=== PATIENT | male | born 1965 | race Caucasian/White ===

== ENCOUNTER 2016-07-01 12:36 | Emergency (ER) | payer OTHER ==
[2016-07-01 12:47] VITALS: BP 158/11; PULSE 75; TEMP 97.6; BMI 33.5
--- NOTE | 2016-07-01 12:58 | PDOC ---
History of Present Illness - General Chief Complaint: Altered Mental Status Stated Complaint: POSSIBLE TIA (PCP SENT) Time Seen by Provider: 07/01/16 12:57 Past History - Past Medical History Allergies/Adverse Reactions: Allergies Allergy/AdvReac Type Severity Reaction Status Date / Time No Known Allergies Allergy Verified 07/01/16 12:43 - Psycho/Social/Smoking Cessation Hx Suicidal Ideation: No Smoking History: Never smoked *Physical Exam - Vital Signs Last Vital Signs Temp Pulse Resp BP Pulse Ox 97.6 F 75 19 158/11 97 07/01/16 12:43 07/01/16 12:43 07/01/16 12:43 07/01/16 12:43 07/01/16 12:43
[2016-07-01] MEDS ORDERED: SODIUM CHLORIDE 1,000 ML IV SCH (13:00)
--- NOTE | 2016-07-01 13:23 | PDOC ---
Attending Attestation - Resident Resident Name: Kofi Maurer - ED Attending Attestation I have performed the following: I have examined & evaluated the patient, The case was reviewed & discussed with the resident, I agree w/resident's findings & plan, Exceptions are as noted - HPI HPI: 07/01/16 13:22 The patient is a 50-year-old male, with no significant past medical history, who presents to the emergency department at the encouragement of his primary care physician, after he developed "forgetfulness" and having trouble expressing himself, both of which developed shortly after he took Celexa for the first time yesterday afternoon. He states that he is at baseline now. He denies focal weakness, paresthesias. He denies fever, neck pain. He denies alcohol use or illegal drug use. - Physicial Exam PE: 07/01/16 13:22 Vitals noted (ititial diastolic of 11 was an error) He is well appearing No aphasia No focal weaknesses 07/01/16 13:31 EKG: Normal sinus rhythm at 72, normal axis, normal intervals, no ST changes - Medical Decision Making 07/01/16 13:22 Will obtain labs, head CT The temporal relationship of the symptoms with the Celexa administration, makes me very suspicious for an adverse drug reaction 07/01/16 14:01 CBC, urinalysis, urine toxicity noted 07/01/16 14:[address] done, results pending The patient continues to be at baseline Neuro exam remains non-focal 07/01/16 14:46 CT official reading, negative Clinical impression: Adverse drug reaction to Celexa I discussed the physical exam findings, ancillary test results and final diagnoses with the patient. I answered all of the patient's questions. The patient was satisfied with the care received and felt comfortable with the discharge plan and treatment plan. The patient will call their primary care physician within 24 hours to arrange follow-up and will return to the Emergency Department with any new, persistent or worsening symptoms. A portion of this note was documented by scribe services under my direction. I have reviewed the details of the note, within reason, and agree with the documentation with the following case summary and management plan written by me.
[2016-07-01 13:35] LABS: BASOPHIL 1.1 % (0-2.0); EOSINOPHIL 2.3 % (0-4.5); MCH 28.5 pg (25.7-33.7); MCHC 33.2 g/dl (32.0-35.9); MEAN CELL VOLUME 85.9 fl (80-96); MEAN PLT VOLUME 7.7 fl (7.5-11.1); NEUTROPHILS 55.4 % (42.8-82.8); PLATELET COUNT 238 K/MM3 (134-434); RDW 14.2 % (11.9-15.9); WHITE BLOOD COUNT 7.5 K/mm3 (4.0-10.0)
--- NOTE | 2016-07-01 13:39 | PDOC ---
History of Present Illness <Benny Sotelo - Last Filed: 07/01/16 14:46> - History of Present Illness Initial Comments: 50 yo M with PMHx of HTN, anxiety and ptsd present with one day history of Altered mental status. He states that he saw his PCP yesterday and was started on Escitalopram. He states that since yesterday he had slurred speech and inability to find words. It lasted for a few hours and has since resolved but it worried him enough to come to to ED. He denies CP,CAMPOS, SOB, palpitation, abd.pain. N/V. Timing/Duration: gone now Severity: mild Associated Symptoms: anxiety <Kofi Maurer - Last Filed: 07/01/16 15:02> - General Chief Complaint: Altered Mental Status Stated Complaint: POSSIBLE TIA (PCP SENT) Time Seen by Provider: 07/01/16 12:57 Past History <Benny Sotelo - Last Filed: 07/01/16 14:46> - Past Medical History Psychosocial History: Yes: depression, hypertension - Social History Smoking Status: Never smoked <Kofi Maurer - Last Filed: 07/01/16 15:02> - Past Medical History Allergies/Adverse Reactions: Allergies No Known Allergies Allergy (Verified 07/01/16 12:43) Home Medications: Ambulatory Orders Escitalopram Oxalate [Lexapro -] 10 mg PO DAILY 07/01/16 Losartan Potassium [Cozaar -] 50 mg PO DAILY 07/01/16 *Review of Systems - Review of Systems Psychiatric: Yes: Anxiety, Other (difficult to find words. ) All Other Systems: Reviewed and Negative <Kofi Maurer - Last Filed: 07/01/16 15:02> *Physical Exam - Vital Signs Last Vital Signs Temp Pulse Resp BP Pulse Ox 97.6 F 75 19 158/11 97 07/01/16 12:43 07/01/16 12:43 07/01/16 12:43 07/01/16 12:43 07/01/16 12:43 <Benny Sotelo - Last Filed: 07/01/16 14:46> - Vital Signs Last Vital Signs Temp Pulse Resp BP Pulse Ox 97.6 F 75 19 158/11 97 07/01/16 12:43 07/01/16 12:43 07/01/16 12:43 07/01/16 12:43 07/01/16 12:43 - Physical Exam HEENT: positive: EOMI, ANGELICA Neck: positive: Supple Respiratory/Chest: positive: Lungs Clear, Normal Breath Sounds Cardiovascular: positive: Regular Rhythm, Regular Rate, S1, S2. 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, Fully Oriented, Alert, Normal Mood/ Affect, Normal Response, Motor Strength 5/5 <Kofi Maurer - Last Filed: 07/01/16 15:02> Plan - Order(s) Order(s): Orders Medication Instructions Recorded Escitalopram Oxalate [Lexapro -] 10 mg PO DAILY 07/01/16 Losartan Potassium [Cozaar -] 50 mg PO DAILY 07/01/16 - Laboratory CBC & Chemistry Diagram: 07/01/16 13:18 07/01/16 13:17 Lab/Micro Results: 07/01/16 07/01/16 07/01/16 13:33 13:17 13:17 INR Sodium Potassium Chloride Carbon Dioxide Anion Gap BUN Creatinine Creat Clearance w eGFR Random Glucose Calcium Total Bilirubin AST ALT Alkaline Phosphatase Creatine Kinase Creatine Kinase Index CK-MB (CK-2) Troponin I Total Protein Albumin Triglycerides Cholesterol Total LDL Cholesterol HDL Cholesterol Urine Color Urine Appearance Urine pH Ur Specific Center [place] Urine Protein Urine Glucose (UA) Urine Ketones Urine Blood Urine Nitrite Urine Bilirubin Urine Urobilinogen Ur Leukocyte Esterase Opiates Screen Negative Methadone Screen Negative Barbiturate Screen Negative Phencyclidine Screen Negative Ur Amphetamines Screen Negative MDMA (Ecstasy) Screen Negative Benzodiazepines Screen Negative Cocaine Screen Negative U Marijuana (THC) Screen Negative Alcohol, Quantitative < 5.0 Blood Type O POSITIVE Antibody Screen Negative 07/01/16 07/01/16 07/01/16 13:17 13:17 13:17 INR 1.14 Sodium 144 Potassium 4.2 Chloride 108 H Carbon Dioxide 25 Anion Gap 11 BUN 14 Creatinine 0.9 Creat Clearance w eGFR > 60 Random Glucose 85 Calcium 9.7 Total Bilirubin 0.6 AST 27 ALT 32 Alkaline Phosphatase 76 Creatine Kinase 206 Creatine Kinase Index 1.8 CK-MB (CK-2) 3.656 H Troponin I 0.02 Total Protein 7.8 Albumin 4.6 Triglycerides 125 Cholesterol 227 H Total LDL Cholesterol 148 H HDL Cholesterol 53 Urine Color Yellow Urine Appearance Clear Urine pH 5.0 Ur Specific [place] 1.025 Urine Protein Negative Urine Glucose (UA) Negative Urine Ketones Negative Urine Blood Negative Urine Nitrite Negative Urine Bilirubin Negative Urine Urobilinogen Negative Ur Leukocyte Esterase Negative Opiates Screen Methadone Screen Barbiturate Screen Phencyclidine Screen Ur Amphetamines Screen MDMA (Ecstasy) Screen Benzodiazepines Screen Cocaine Screen U Marijuana (THC) Screen Alcohol, Quantitative Blood Type Antibody Screen 07/01/16 13:18 RBC 5.59 MCV 85.9 MCHC 33.2 RDW 14.2 MPV 7.7 Neutrophils % 55.4 Lymphocytes % 32.1 Monocytes % 9.1 Eosinophils % 2.3 Basophils % 1.1 - Radiology Study(ies) Orders: 07/01/16 14:46 EXAM: HEAD CT INTERPRETED BY: Dr. Alvarez REVIEWED BY: Dr. Ordaz IMPRESSION: No evidence of acute intracranial hemorrhage, edema, midline shift, mass effect, or skull fracture. No CT evidence of acute territorial infarction. <Benny Sotelo - Last Filed: 07/01/16 14:46> - Progress Note Progress Note: 07/01/16 15:01 Most likely an adverse drug reaction. CT head negative for acute pathology. Will discharge home. - Laboratory CBC & Chemistry Diagram: 07/01/16 13:18 07/01/16 13:17 <Kofi Maurer - Last Filed: 07/01/16 15:02> *DC/Admit/Observation/Transfer - Attestations Scribe Attestion: 07/01/16 14:47 Documentation prepared by Benny Sotelo, acting as medical staffing coordinator for Roberto Ordaz MD. <Benny Sotelo - Last Filed: 07/01/16 14:46> - Discharge Dispostion Admit: No <Kofi Maurer - Last Filed: 07/01/16 15:02> Diagnosis at time of Disposition: Adverse drug effect - Discharge Dispostion Disposition: HOME - Referrals Referrals: Ezequiel Sandoval MD [Primary Care Provider] - - Patient Instructions Printed Discharge Instructions: DI for Adverse Drug Reaction -- Other Additional Instructions: Need to follow up with PCP ONDINA to be refered to Psychiatry. Please stop Escitalapram immediately. Regular diet. Increase activity as tolerated. Return to ER immediately if symptoms return or worsen.
[2016-07-01 13:45] LABS: URINE APPEARANCE CLEAR; URINE BILIRUBIN NEGATIVE (NEGATIVE); URINE BLOOD NEGATIVE (NEGATIVE); URINE COLOR YELLOW; URINE GLUCOSE (UA) NEGATIVE (NEGATIVE); URINE KETONE NEGATIVE (NEGATIVE); URINE LEUK ESTERASE NEGATIVE (NEGATIVE); URINE NITRITE NEGATIVE (NEGATIVE); URINE PROTEIN NEGATIVE (NEGATIVE); URINE UROBILINOGEN NEGATIVE E.U./dl (0.2-1.0)
[2016-07-01 13:59] LABS: URINE MARIJUANA THC NEGATIVE ng/ml (CUTOFF=50)
[2016-07-01 14:03] LABS: ALBUMIN 4.6 g/dl (3.4-5.0); ANION GAP 11 (8-16); CALCIUM 9.7 mg/dL (8.5-10.1); CHOLESTEROL 227 mg/dL (50-200); CO2 25 mmol/L (21-32); COCKROFT - GAULT 151.19; CREATININE 0.9 mg/dL (0.7-1.3); GLUCOSE,RANDOM 85 mg/dL (74-106); SGOT/AST 27 U/L (15-37); SGPT/ALT 32 U/L (12-78)
[2016-07-01 14:05] LABS: INR 1.14 (0.82-1.09); PROTHROMBIN TIME (PATIENT) 12.6 SEC (9.98-11.88)
[2016-07-01 14:07] LABS: ALK PHOS 76 U/L (45-117); BILIRUBIN,TOTAL 0.6 mg/dL (0.2-1.0); TOT PROT 7.8 g/dl (6.4-8.2); TROPONIN I 0.02 ng/ml (0.00-0.05)
[2016-07-01 14:13] LABS: LDL CHOLESTEROL (ONLY SJRH) 148 mg/dL (5-100)
--- NOTE | 2016-07-01 16:20 | EKG ---
Test Reason : Blood Pressure : / mmHG Vent. Rate : 073 BPM Atrial Rate : 073 BPM P-R Int : 164 ms QRS Dur : 092 ms QT Int : 388 ms P-R-T Axes : 051 071 038 degrees QTc Int : 427 ms NORMAL SINUS RHYTHM NORMAL ECG NO PREVIOUS ECGS AVAILABLE Confirmed by AVINASH ROUSE MD ([id number]) on 07/01/2016 4:20:28 PM Referred By: Confirmed By:AVINASH ROUSE MD
== END 2016-07-01 15:12 | disposition home or self-care (01) ==
LOC: JER 12:36
DX: R41.82 Altered mental status, unspecified (principal); T43.225A Adverse effect of selective serotonin reuptake inhibitors, initial encounter; Y92.038 Other place in apartment as the place of occurrence of the external cause; I10 Essential (primary) hypertension; F32.9 Major depressive disorder, single episode, unspecified; F43.10 Post-traumatic stress disorder, unspecified
CPT/HCPCS: 36415; 70450-TC; 80053; 80307; 81003; 82465; 82550; 82553; 83718; 83721; 84478; 84484; 85025; 85610; 86850; 86900; 86901; 93005; 93010; 99283-25

== ENCOUNTER 2018-02-26 16:16 | Inpatient (IN) | payer OTHER ==
--- NOTE | 2018-02-26 16:27 | PDOC ---
History of Present Illness - General Chief Complaint: Redness To Affected Area Stated Complaint: LEFT LEG INJECTION Time Seen by Provider: 02/26/18 16:25 History Source: Patient Exam Limitations: No Limitations - History of Present Illness Initial Comments: 02/26/18 17:48 Pt is a 52yo M with PMH of HTN, RAMSES presenting to ED with complaints of L nevarez pain and redness. Pt said yesterday he felt his leg was sore. He was at a soccer game on yesterday and stated that he started to have chills and felt like he was having a fever. Per , pt looked flushed. Fever at home was 101. Pt has not taken anything for fever. He also has not been taking his home bp meds as prescribed. Now his L nevarez is red compared to yesterday and feels more sore. He also says he feels bloated and has not had a bowel movement in 3 days or so. Last BM was regular, non bloody and not tarry. He thinks he may have diverticulitis. He endorses L groin pain and nausea. Denies testicular pain, urinary symptoms, vomiting, diarrhea, constipation, weakness, numbness, SOB, chest pain, headache, sore throat. PMD: Speedy Sandoval PMH: htn PSH: uvula repair Meds: losartan Allergies: nkda Social: occasional alcohol use. Past History - Past Medical History Allergies/Adverse Reactions: Allergies Allergy/AdvReac Type Severity Reaction Status Date / Time No Known Allergies Allergy Verified 02/26/18 16:21 Home Medications: Ambulatory Orders Escitalopram Oxalate [Lexapro -] 10 mg PO DAILY 07/01/16 Losartan Potassium [Cozaar -] 50 mg PO DAILY 07/01/16 COPD: No GI Disorders: Yes (diverticulitis) HTN: Yes - Suicide/Smoking/Psychosocial Hx Smoking History: Never smoked Review of Systems - Review of Systems Constitutional: Yes: Chills, Fever HEENTM: No: Symptoms Reported Respiratory: No: Cough, Shortness of Breath Cardiac (ROS): No: Chest Pain, Lightheadedness, Palpitations, Syncope ABD/GI: Yes: Constipated, Nausea, Other (bloating). No: Diarrhea, Rectal Bleeding, Vomiting, Indigestion, Abdominal cramping, Tarry Stools Musculoskeletal: Yes: See HPI, Muscle Pain (L nevarez). No: Back Pain, Joint Pain , Neck Pain Integumentary: Yes: Rash (L nevarez) Neurological: No: Headache, Numbness, Paresthesia, Tingling, Tremors *Physical Exam - Vital Signs Last Vital Signs Temp Pulse Resp BP Pulse Ox 100.7 F H 94 H 18 163/103 H 97 02/26/18 16:18 1218 16:18 02/26/18 16:18 02/26/18 16:18 02/26/18 16:18 - Physical Exam General Appearance: Yes: Nourished, Appropriately Dressed, Mild Distress HEENT: positive: EOMI, ANGELICA, Pharynx Normal Neck: positive: Trachea midline, Supple. negative: Carotid bruit, Lymphadenopathy (R), Lymphadenopathy (L) Respiratory/Chest: positive: Lungs Clear, Normal Breath Sounds. negative: Crackles, Rales, Rhonchi, Stridor, Wheezing Cardiovascular: positive: Regular Rhythm, Regular Rate, S1, S2. negative: Edema , JVD, Murmur Vascular Pulses: Carotid (R): 2+, Carotid (L): 2+, Dorsalis-Pedis (R): 2+, Doralis-Pedis (L): 2+ Gastrointestinal/Abdominal: positive: Normal Bowel Sounds, Soft Male Genitalia: positive: normal genitalia Musculoskeletal: negative: CVA Tenderness, Vertebral Tenderness Extremity: positive: Normal Capillary Refill. negative: Pedal Edema, Swelling, Calf Tenderness Integumentary: positive: Normal Color, Dry, Warm, Rash (5-6inch rash, erythematous, warm, slightly tender on L nevarez. 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, Fully Oriented, Alert, Normal Mood/ Affect, Normal Response, Motor Strength 5/5 Moderate Sedation - Procedure Monitoring Vital Signs: Procedure Monitoring Vital Signs Temperature 100.7 F H 02/26/18 16:18 Pulse Rate 94 H 02/26/18 16:18 Respiratory Rate 18 02/26/18 16:18 Blood Pressure 163/103 H 02/26/18 16:18 O2 Sat by Pulse Oximetry (%) 97 02/26/18 16:18 ED Treatment Course - LABORATORY CBC & Chemistry Diagram: 02/26/18 16:45 02/26/18 16:45 Medical Decision Making - Medical Decision Making 02/26/18 16:27 Pt is a 52yo M with PMH of HTN, RAMSES presenting to ED with complaints of L nevarez pain and redness. Pt said yesterday he felt his leg was sore. He was at a soccer game on yesterday and stated that he started to have chills and felt like he was having a fever. Per , pt looked flushed. Fever at home was 101. Pt has not taken anything for fever. He also has not been taking his home bp meds as prescribed. Now his L nevarez is red compared to yesterday and feels more sore. He also says he feels bloated and has not had a bowel movement in 3 days or so. Last BM was regular, non bloody and not tarry. He thinks he may have diverticulitis. He endorses L groin pain and nausea. Denies testicular pain and swelling, urinary symptoms, vomiting, diarrhea, constipation, weakness, numbness , SOB, chest pain, headache, sore throat. Vitals: Selected Entries 02/26/18 16:18 Temperature 100.7 F H Pulse Rate 94 H Respiratory 18 Rate Blood Pressure 163/103 H O2 Sat by Pulse 97 Oximetry (%) PE: 4-5inch area of erythema on anterior L nevarez, blanching, warm, slight ttp. No inguinal hernia, no testicular erythema. DDx: cellulitis. Sepsis protocol followed. Will start on fluids, IV tylenol and Vancomycin. Will give Zofran for nausea. EKG: nsr with RBBB CXR: no acute pathology Labs significant for white count of 15. Pt will be admitted to Dr. Sandoval. Per recommendation, will order doppler study of L leg. CTAP also ordered. Consulted Dr. Rodríguez and Papito. *DC/Admit/Observation/Transfer Diagnosis at time of Disposition: Cellulitis Qualifiers: Site of cellulitis: extremity Site of cellulitis of extremity: lower extremity Laterality: left Qualified Code(s): L03.116 - Cellulitis of left lower limb - Referrals Referrals: Speedy Sandoval MD [Primary Care Provider] - - Patient Instructions - Post Discharge Activity
--- NOTE | 2018-02-26 16:37 | PDOC ---
Attending Attestation - HPI HPI: 02/26/18 16:54 The patient is a 52 year old male with a significant past medical history of hypertension and partial uvuloplasty who presents to the emergency department with left leg rash and redness since yesterday. The patient reports that he was at home yesterday when he noticed his large red rash on his left nevarez. He states that he had a fever and associated chills, nausea and decreased PO intake with his leg pain. The patient also reports some constipation:he states that he has only been drinking liquids and the last time he had a normal bowel movement was 4 days ago. He also reports some lower abdominal pain. The patient denies any other symptoms. He denies any vomiting, diarrhea, or urinary symptoms. He denies any chest pain, shortness of breath, headache or dizziness. The patient denies any other complaints. Documentation prepared by Jamar Martinez, acting as territory sales manager medical for Phyllis Petersen MD. - Physicial Exam PE: 02/26/18 16:55 GENERAL: Well-appearing, well-nourished. No apparent distress. HEENT: Normocephalic, atraumatic. PERRL, EOM intact. CARDIOVASCULAR: (+)tachy. Normal S1, S2. Regular rhythm. PULMONARY: Clear to auscultation bilaterally. ABDOMEN: (+)protuberant belly, tender to palpation in right lower and left lower quadrant. Soft, non-distended. EXTREMITIES: (+)20x8am area of redness on left nevarez. Normal ROM in all four extremities. No gross deformities. SKIN: Warm, dry. No rash NEUROLOGICAL: No focal neurological deficits. Documentation prepared by Jamar Martinez, acting as territory sales manager medical for Phyllis Petersen MD. <Jamar Martinez - Last Filed: 02/26/18 16:54> - Resident Resident Name: Brittany Jackman - ED Attending Attestation I have performed the following: I have examined & evaluated the patient, The case was reviewed & discussed with the resident, I agree w/resident's findings & plan, Exceptions are as noted - Medical Decision Making 02/26/18 18:59 52 yo male with cellulitis and abd pain with nausea reviewing labs reveals a leukocytosis normal lactic acid pt received vanco and zosyn and will be admitted to Dr Speedy Sandoval <Phyllis Petersen - Last Filed: 02/26/18 19:00>
[2018-02-26] MEDS ORDERED: SODIUM CHLORIDE 1,000 ML IV STA (16:43)
[2018-02-26] MEDS ORDERED: ONDANSETRON 4 MG/2 ML VIAL IVPB ONE (16:43)
[2018-02-26] MEDS ORDERED: ACETAMINOPHEN 1000 MG/100 ML VIAL (NON FORMULARY) IVPB ONE (16:43)
[2018-02-26] MEDS ORDERED: ACETAMINOPHEN INJECTION 100 ML IVPB ONE (17:14)
[2018-02-26] MEDS ORDERED: ONDANSETRON 4 MG/2 ML VIAL ONE (17:14)
[2018-02-26 17:17] LABS: BASO % 0.5 % (0-2.0); EOS % 0.1 % (0-4.5); HEMATOCRIT 46.5 % (35.4-49); LYMPH % 7.8 % (8-40); MCH 29.4 pg (25.7-33.7); MCHC 34.5 g/dl (32.0-35.9); MEAN CELL VOLUME 85.3 fl (80-96); MEAN PLT VOLUME 7.8 fl (7.5-11.1); NEUT % 83.6 % (42.8-82.8); PLATELET COUNT 198 K/MM3 (134-434); RBC 5.45 M/mm3 (4.00-5.60); RDW 14.1 % (11.9-15.9); WHITE BLOOD COUNT 15.3 K/mm3 (4.0-10.0)
[2018-02-26] MEDS ORDERED: VANCOMYCIN 1 GRAM (PRE-DOCKED) 1,000 MG/250 ML BAG IVPB ONE ×2 (17:17→18:03)
[2018-02-26 17:19] LABS: VENOUS PC02 33.7 mmHg (38-52); VENOUS PH 7.47 (7.32-7.42); VENOUS PO2 52.8 mmHg (28-48)
[2018-02-26 17:30] LABS: INR 1.34 (0.83-1.09); PROTHROMBIN TIME (PATIENT) 15.8 SEC (9.7-13.0)
[2018-02-26 17:32] LABS: ACTIVATED PTT 28.7 SECONDS (25.2-36.5)
[2018-02-26 17:45] LABS: ALBUMIN 4.1 g/dl (3.4-5.0); ALK PHOS 75 U/L (45-117); ANION GAP 8 MMOL/L (8-16); BILIRUBIN,TOTAL 0.9 mg/dL (0.2-1); BLOOD UREA NITROGEN 17 mg/dL (7-18); CALCIUM 9.2 mg/dL (8.5-10.1); CHLORIDE 102 mmol/L (98-107); CO2 23 mmol/L (21-32); CREATININE 1.2 mg/dL (0.55-1.3); GLUCOSE,RANDOM 95 mg/dL (74-106); POTASSIUM 4.2 mmol/L (3.5-5.1); SGOT/AST 27 U/L (15-37); SGPT/ALT 48 U/L (13-61); SODIUM 133 mmol/L (136-145); TOT PROT 7.7 g/dl (6.4-8.2)
[2018-02-26] MEDS: SODIUM CHLORIDE 1,000 ML IV SCH (21:04)
[2018-02-26 21:06] LABS: URINE APPEARANCE CLEAR; URINE BILIRUBIN NEGATIVE (<2.0 mg/dL); URINE COLOR YELLOW; URINE GLUCOSE (UA) NEGATIVE (NEGATIVE); URINE KETONE NEGATIVE (NEGATIVE); URINE LEUK ESTERASE NEGATIVE (NEGATIVE); URINE NITRITE NEGATIVE (NEGATIVE); URINE PROTEIN NEGATIVE (NEGATIVE)
[2018-02-26 21:26] LABS: URINE MUCUS RARE
[2018-02-26 22:47] VITALS: BMI 33.2
[2018-02-27] MEDS ORDERED: PIPERACILLIN/TAZOB 3.375 GM 3.375 GM in DEXTROSE 5%-WATER - 50 ML IVPB SCH ×2 (02:00→11:30)
[2018-02-27 07:16] LABS: BASO % 0.5 % (0-2.0); EOS % 0.1 % (0-4.5); HEMATOCRIT 44.1 % (35.4-49); HEMOGLOBIN 14.5 GM/dL (11.7-16.9); LYMPH % 9.3 % (8-40); MCH 28.3 pg (25.7-33.7); MCHC 32.8 g/dl (32.0-35.9); MEAN CELL VOLUME 86.3 fl (80-96); MONO % 11.3 % (3.8-10.2); NEUT % 78.8 % (42.8-82.8); PLATELET COUNT 163 K/MM3 (134-434); RBC 5.12 M/mm3 (4.00-5.60); RDW 14.1 % (11.9-15.9); WHITE BLOOD COUNT 11.9 K/mm3 (4.0-10.0)
[2018-02-27 07:32] LABS: ALBUMIN 3.5 g/dl (3.4-5.0); ALK PHOS 71 U/L (45-117); ANION GAP 8 MMOL/L (8-16); BILIRUBIN,TOTAL 0.8 mg/dL (0.2-1); BLOOD UREA NITROGEN 17 mg/dL (7-18); CHLORIDE 102 mmol/L (98-107); CO2 25 mmol/L (21-32); CREATININE 1.1 mg/dL (0.55-1.3); GLUCOSE,RANDOM 110 mg/dL (74-106); POTASSIUM 3.9 mmol/L (3.5-5.1); SGOT/AST 22 U/L (15-37); SGPT/ALT 42 U/L (13-61); SODIUM 135 mmol/L (136-145); TOT PROT 6.8 g/dl (6.4-8.2)
--- NOTE | 2018-02-27 09:00 | CONSULT ---
- Consultation REQUESTING PROVIDER: CONSULT REQUEST: We have been asked to surgically evaluate this patient for ( Left nevarez cellulitis). PCP:Speedy Sandoval HISTORY OF PRESENT ILLNESS: 52 y/o M with PMH of HTN, RAMSES now admitted overnight due to L nevarez pain/erythema. Pt states he began having pain and itching over his L nevarez Tuesday afternoon. Upon waking yesterday he noted a rash over his nevarez which got larger and darker throughout the day. Endorses chills yesterday afternoon while at a soccer game, reports oral temp of 101F at home in the evening. Also reports abdominal bloating, discomfort and constipation. Reports last BM 3-4 days ago. States he has been feeling increasingly weak and was barely able to hold his own weight yesterday. Endorses nausea and anorexia, no vomiting or diarrhea. Denies sob/cp, prior h/o cellulitis, trauma. 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 PMHx: htn, ramses PSHx: partial uvuloplasty Home Medications Medication Instructions Recorded Escitalopram Oxalate [Lexapro -] 10 mg PO DAILY 07/01/16 Losartan Potassium [Cozaar -] 50 mg PO DAILY 07/01/16 Allergies Allergy/AdvReac Type Severity Reaction Status Date / Time No Known Allergies Allergy Verified 02/26/18 16:21 REVIEW OF SYSTEMS: CONSTITUTIONAL: +fever, chills CARDIOVASCULAR: Absent: chest pain, syncope RESPIRATORY: Absent: cough, shortness of breath GASTROINTESTINAL: +abdominal pain, abdominal distension, nausea, constipation. Denies vomiting, diarrhea. MUSCULOSKELETAL: Absent: myalgia, arthralgia PHYSICAL EXAM: GENERAL: Awake, alert, and fully oriented, in no acute distress. HEAD: Normal with no signs of trauma. LUNGS: Clear to auscultation bilat anteriorly. No accessory muscle use. HEART: Regular rate and rhythm. ABDOMEN: Soft, minimally tender to palpation RLQ/LLQ, minimaly distention. Normoactive bowel sounds, no guarding, no rebound. LOWER EXTREMITIES: L anterior nevarez with large erythematous rash (slightly improved from marking) with +edema of surrounding tissue. ++increased warmth, no crepitus, no fluctuance appreciated. No open sores, no scabs noted. RLE with small superficial scabs over medial aspect of ankle, no erythema or drainage. 2 + dp/pt pulses. Vital Signs Temperature 99.4 F 12/17/18 05:30 Pulse Rate 96 H 02/27/18 05:30 Respiratory Rate 16 02/27/18 05:30 Blood Pressure 158/88 02/27/18 05:30 O2 Sat by Pulse Oximetry (%) 96 02/26/18 23:08 Lab Results WBC 11.9 K/mm3 (4.0-10.0) H 02/27/18 06:15 RBC 5.12 M/mm3 (4.00-5.60) 02/27/18 06:15 Hgb 14.5 GM/dL (11.7-16.9) 02/27/18 06:15 Hct 44.1 % (35.4-49) 02/27/18 06:15 MCV 86.3 fl (80-96) 02/27/18 06:15 MCHC 32.8 g/dl (32.0-35.9) 02/27/18 06:15 RDW 14.1 % (11.9-15.9) 02/27/18 06:15 Plt Count 163 K/MM3 (134-434) 02/27/18 06:15 Sodium 135 mmol/L (136-145) L 02/27/18 06:15 Potassium 3.9 mmol/L (3.5-5.1) 02/27/18 06:15 Chloride 102 mmol/L (98-107) 02/27/18 06:15 Carbon Dioxide 25 mmol/L (21-32) 02/27/18 06:15 Anion Gap 8 MMOL/L (8-16) 02/27/18 06:15 BUN 17 mg/dL (7-18) 02/27/18 06:15 Creatinine 1.1 mg/dL (0.55-1.3) 02/27/18 06:15 Random Glucose 110 mg/dL (74-106) H 02/27/18 06:15 Calcium 9.0 mg/dL (8.5-10.1) 02/27/18 06:15 INR 1.34 (0.83-1.09) H 02/26/18 16:45 A/P: 52 y/o M with PMH of HTN, RAMSES now admitted overnight due to L nevarez pain/ erythema. LLE with + cellulitis. Low grade fevers, Leukocytosis 15.3 on admission with L shift, now 11.9, now L shift resolved. -CT non con LLE -Continue IV abx per primary team -LLE elevation while at rest -F/U blood cultures above d/w attending Dr Cobos
--- NOTE | 2018-02-27 09:50 | EKG ---
Test Reason : Blood Pressure : / mmHG Vent. Rate : 090 BPM Atrial Rate : 090 BPM P-R Int : 158 ms QRS Dur : 138 ms QT Int : 356 ms P-R-T Axes : 045 084 007 degrees QTc Int : 435 ms NORMAL SINUS RHYTHM RIGHT BUNDLE BRANCH BLOCK T WAVE ABNORMALITY, CONSIDER INFERIOR ISCHEMIA ABNORMAL ECG WHEN COMPARED WITH ECG OF 01-JUL-2016 13:27, RIGHT BUNDLE BRANCH BLOCK IS NOW PRESENT Confirmed by DIAMOND RUANO, JOSUE ([id number]) on 02/27/2018 9:50:33 AM Referred By: Confirmed By:JOSUE FIELDS MD
[2018-02-27] MEDS: LOSARTAN POTASSIUM 50 MG TABLET (FP) PO SCH (10:25)
[2018-02-27] MEDS: ASPIRIN COATED 81 MG TABLET.EC PO SCH (10:25)
--- NOTE | 2018-02-27 10:52 | HP ---
Admitting History and Physical - Primary Care Physician PCP: sindy hugo - Admission Chief Complaint: c/o of lt leg cellulitis rash 4 days. 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 History Source: Patient Limitations to Obtaining History: No Limitations - Smoking History Smoking history: Never smoked Have you smoked in the past 12 months: No - Alcohol/Substance Use Hx Alcohol Use: No Home Medications - Allergies Allergies/Adverse Reactions: Allergies Allergy/AdvReac Type Severity Reaction Status Date / Time No Known Allergies Allergy Verified 02/26/18 16:21 - Home Medications Home Medications: Ambulatory Orders Escitalopram Oxalate [Lexapro -] 10 mg PO DAILY 07/01/16 Losartan Potassium [Cozaar -] 50 mg PO DAILY 07/01/16 Family Disease History - Family Disease History Family History: Unremarkable Review of Systems - Review of Systems Constitutional: reports: Other (lt leg pain) HENT: reports: No Symptoms Neck: reports: No Symptoms Cardiovascular: reports: No Symptoms Respiratory: reports: No Symptoms Gastrointestinal: reports: No Symptoms Genitourinary: reports: No Symptoms Breasts: reports: No Symptoms Reported Musculoskeletal: reports: No Symptoms Integumentary: reports: Rash Neurological: reports: No Symptoms Endocrine: reports: No Symptoms Hematology/Lymphatic: reports: No Symptoms Psychiatric: reports: No Symptoms Physical Examination Vital Signs: Vital Signs Temperature 99.4 F 02/27/18 05:30 Pulse Rate 96 H 02/27/18 05:30 Respiratory Rate 16 02/27/18 05:30 Blood Pressure 158/88 02/27/18 05:30 O2 Sat by Pulse Oximetry (%) 96 02/26/18 23:08 Extremities: Yes: Erythema (lt leg), Other Labs: CBC, BMP 02/27/18 06:15 02/27/18 06:15 Problem List - Problems (1) Hypertension Code(s): I10 - ESSENTIAL (PRIMARY) HYPERTENSION Assessment/Plan warm soaks lt leg abxs iv id and vasc to see pt cont all tx as is bp meds given not complkiant
[2018-02-27] MEDS ORDERED: HYDROCORTISONE 2.5% LOTION - 1 BOTTLE TP ONE (10:53)
[2018-02-27] MEDS ORDERED: POLYETHYLENE GLYCOL 3350 119 GM BTL PO ONE (10:54)
--- NOTE | 2018-02-27 12:23 | CON.ID ---
Consult Consult Specialty:: infectious diseases Referred by:: dr long Reason for Consultation:: cellulitis of the leg - History of Present Illness Chief Complaint: redness and cellulitis of the leg History of Present Illness: 52 year old male with a significant past medical history of hypertension and partial uvuloplasty admitted because of cellulitis of the of the left leg. 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 denies any trauma or bite the cellulitis of the leg is haphazard ,it is warm patient has known history of htn denies smoking drugs or etoh patient was also c/o of abd pain and nausea,had abd ct scan done which was essentially normal - History Source History Provided By: Patient Limitations to Obtaining History: No Limitations - Alcohol/Substance Use Hx Alcohol Use: No - Smoking History Smoking history: Never smoked Have you smoked in the past 12 months: No Home Medications - Allergies Allergies/Adverse Reactions: Allergies Allergy/AdvReac Type Severity Reaction Status Date / Time No Known Allergies Allergy Verified 02/26/18 16:21 - Home Medications Home Medications: Ambulatory Orders Escitalopram Oxalate [Lexapro -] 10 mg PO DAILY 07/01/16 Losartan Potassium [Cozaar -] 50 mg PO DAILY 07/01/16 Review of Systems - Review of Systems Constitutional: reports: No Symptoms Eyes: reports: No Symptoms HENT: reports: No Symptoms Neck: reports: No Symptoms Cardiovascular: reports: No Symptoms Respiratory: reports: No Symptoms Gastrointestinal: reports: No Symptoms Genitourinary: reports: No Symptoms Musculoskeletal: reports: No Symptoms Integumentary: reports: Change in Color, Erythema Neurological: reports: No Symptoms Endocrine: reports: No Symptoms Hematology/Lymphatic: reports: No Symptoms Psychiatric: reports: No Symptoms Physical Exam Vital Signs: Vital Signs Temperature 99.4 F 02/27/18 05:30 Pulse Rate 96 H 02/27/18 05:30 Respiratory Rate 16 02/27/18 05:30 Blood Pressure 158/88 02/27/18 05:30 O2 Sat by Pulse Oximetry (%) 96 02/26/18 23:08 Constitutional: Yes: Well Nourished, No Distress, Calm Eyes: Yes: Conjunctiva Clear Neck: Yes: Supple, Trachea Midline Cardiovascular: Yes: Regular Rate and Rhythm Respiratory: Yes: Regular, CTA Bilaterally Gastrointestinal: Yes: Normal Bowel Sounds, Soft Musculoskeletal: Yes: WNL Extremities: Yes: Erythema Integumentary: Yes: Erythema Neurological: Yes: Alert, Oriented Psychiatric: Yes: Alert, Oriented Labs: CBC, BMP 02/27/18 06:15 02/27/18 06:15 Imaging - Results Chest X-ray: Report Reviewed, Image Reviewed Cat Scan: Report Reviewed, Image Reviewed Assessment/Plan cellulitis of left leg abd pain nausea leukocytosis patient receive abx plan will continue zosyn and vanco close monitoring of the leg rest as per the team
[2018-02-27] MEDS ORDERED: PIPERACILLIN/TAZOBACTAM 3.375 GM VIAL IVPB ONE ×2 (13:34→16:10)
[2018-02-27] MEDS: VANCOMYCIN 1,250 MG in DEXTROSE 5%-WATER - 250 ML IVPB SCH (13:44)
[2018-02-27] MEDS ORDERED: DEXTROSE 5%-WATER - 50 ML IVPB ONE (16:11)
[2018-02-27] MEDS: PIPERACILLIN/TAZOB 3.375 GM 3.375 GM in DEXTROSE 5%-WATER - 50 ML IVPB SCH (17:28)
[2018-02-28] MEDS ORDERED: PIPERACILLIN/TAZOBACTAM 3.375 GM VIAL IVPB ONE ×3 (01:49→16:40)
[2018-02-28] MEDS ORDERED: DEXTROSE 5%-WATER - 50 ML IVPB ONE ×3 (01:50→16:40)
[2018-02-28] MEDS: PIPERACILLIN/TAZOB 3.375 GM 3.375 GM in DEXTROSE 5%-WATER - 50 ML IVPB SCH ×3 (01:53→17:08)
[2018-02-28 06:08] LABS: BASO % 0.5 % (0-2.0); EOS % 2.1 % (0-4.5); HEMATOCRIT 47.3 % (35.4-49); HEMOGLOBIN 15.5 GM/dL (11.7-16.9); LYMPH % 23.5 % (8-40); MCH 28.4 pg (25.7-33.7); MCHC 32.8 g/dl (32.0-35.9); MEAN CELL VOLUME 86.6 fl (80-96); MEAN PLT VOLUME 7.9 fl (7.5-11.1); MONO % 14.6 % (3.8-10.2); NEUT % 59.3 % (42.8-82.8); PLATELET COUNT 178 K/MM3 (134-434); RBC 5.46 M/mm3 (4.00-5.60)
[2018-02-28 06:26] LABS: ANION GAP 6 MMOL/L (8-16); BLOOD UREA NITROGEN 18 mg/dL (7-18); CALCIUM 9.2 mg/dL (8.5-10.1); CHLORIDE 106 mmol/L (98-107); CO2 27 mmol/L (21-32); CREATININE 1.2 mg/dL (0.55-1.3); GLUCOSE,RANDOM 108 mg/dL (74-106); POTASSIUM 4.1 mmol/L (3.5-5.1); SODIUM 139 mmol/L (136-145)
[2018-02-28] MEDS: SODIUM CHLORIDE 1,000 ML IV SCH (08:07)
[2018-02-28] MEDS: LOSARTAN POTASSIUM 50 MG TABLET (FP) PO SCH (09:47)
[2018-02-28] MEDS: ASPIRIN COATED 81 MG TABLET.EC PO SCH (09:47)
--- NOTE | 2018-02-28 11:00 | PN ---
Progress Note, Physician Chief Complaint: none - Current Medication List Current Medications: Active Medications Aspirin (Ecotrin -) 162 mg PO DAILY [facility] Last Admin: 02/28/18 09:47 Dose: 162 mg Sodium Chloride (Normal Saline -) 1,000 mls @ 75 mls/hr IV ASDIR [facility] Last Admin: 02/28/18 08:07 Dose: 75 mls/hr Vancomycin HCl 1,250 mg/ (Dextrose) 250 mls @ 250 mls/2 hr IVPB Q24H [facility]; Protocol Last Admin: 02/27/18 13:44 Dose: 250 mls/2 hr Piperacillin Sod/Tazobactam (Sod 3.375 gm/ Dextrose) 50 mls @ 100 mls/hr IVPB Q8H-IV [facility]; Protocol Last Admin: 02/28/18 09:47 Dose: 100 mls/hr Losartan Potassium (Cozaar -) 50 mg PO DAILY [facility] Last Admin: 02/28/18 09:47 Dose: 50 mg - Objective Vital Signs: Vital Signs Temperature 97.9 F 02/28/18 06:00 Pulse Rate 77 02/28/18 10:00 Respiratory Rate 18 02/28/18 10:00 Blood Pressure 143/91 02/28/18 10:00 O2 Sat by Pulse Oximetry (%) 96 02/28/18 09:00 Constitutional: Yes: Well Nourished Eyes: Yes: WNL HENT: Yes: Other Cardiovascular: Yes: WNL, Other Respiratory: Yes: WNL Gastrointestinal: Yes: WNL ...Rectal Exam: Yes: Deferred Genitourinary: Yes: WNL Breast(s): Yes: WNL Musculoskeletal: Yes: WNL Extremities: Yes: Other (lt leg slyt improvment) Edema: No Edema: LLE: 1+ Integumentary: Yes: Rash Neurological: Yes: WNL Labs: CBC, BMP 02/28/18 05:30 02/28/18 05:30 INR, PTT INR 1.34 (0.83-1.09) H 02/26/18 16:45 Problem List - Problems (1) Hypertension Code(s): I10 - ESSENTIAL (PRIMARY) HYPERTENSION Assessment/Plan bactroban cream prn cont tx as is
[2018-02-28] MEDS: VANCOMYCIN 1,250 MG in DEXTROSE 5%-WATER - 250 ML IVPB SCH (12:17)
[2018-02-28] MEDS: MUPIROCIN CA 2% TOPICAL CREAM 15 GM TUBE TP SCH ×2 (12:18→21:39)
--- NOTE | 2018-02-28 14:41 | PN ---
Progress Note (short form) - Note Progress Note: Pt seen and examined on AM rounds. States he feels slightly less pain than yesterday. Has been oob. Denies chills, nausea/vomiting/diarrhea. Vital Signs Temp 98.3 F 02/28/18 14:00 Pulse 80 02/28/18 14:00 Resp 20 02/28/18 14:00 BP 145/68 02/28/18 14:00 Pulse Ox 96 02/28/18 09:00 Intake & Output 02/27/18 02/28/18 02/28/18 23:59 11:59 23:59 Intake Total 800 875 600 Balance 800 875 600 Weight 238 lb Intake: IV 825 Normal Saline - 1,000 ml 825 @ 75 mls/hr IV ASDIR [facility] Rx#:[id number] IVPB 50 Oral 800 600 Other: Voiding Method Toilet Toilet Toilet # Unmeasured Voids Void 2 1 2 Bowel Movement No No Yes: SOFT # Bowel Movements 1 Height 5 ft 11 in Body Mass Index (BMI) 33.2 CBC, BMP 02/28/18 05:30 02/28/18 05:30 CT LLE (02/27/18): Soft tissue swelling, subcutaneous edema. No fluid collection or air pockets visualized. Blood cultures negative A/P: 52 y/o M with PMH of HTN, RAMSES now admitted due to L nevarez pain/erythema. LLE with + cellulitis, grossly unchanged from yesterday. Afebrile, leukocytosis resolved. CT negative for deeper infection. -Continue IV abx per ID -LLE elevation while at rest -Monitor closely for worsening infection/abscess formation -Page [phone] with any questions/concerns Above d/w attending Dr Cobos
--- NOTE | 2018-02-28 18:01 | PN ---
Progress Note, Physician History of Present Illness: leg still red patient comfortable - Current Medication List Current Medications: Active Medications Aspirin (Ecotrin -) 162 mg PO DAILY [facility] Last Admin: 02/28/18 09:47 Dose: 162 mg Sodium Chloride (Normal Saline -) 1,000 mls @ 75 mls/hr IV ASDIR [facility] Last Admin: 02/28/18 08:07 Dose: 75 mls/hr Vancomycin HCl 1,250 mg/ (Dextrose) 250 mls @ 250 mls/2 hr IVPB Q24H [facility]; Protocol Last Admin: 02/28/18 12:17 Dose: 250 mls/2 hr Piperacillin Sod/Tazobactam (Sod 3.375 gm/ Dextrose) 50 mls @ 100 mls/hr IVPB Q8H-IV [facility]; Protocol Last Admin: 02/28/18 17:08 Dose: 100 mls/hr Losartan Potassium (Cozaar -) 50 mg PO DAILY [facility] Last Admin: 02/28/18 09:47 Dose: 50 mg Mupirocin (Bactroban 2% Cream -) 1 applic TP BID [facility] Last Admin: 02/28/18 12:18 Dose: 1 applic - Objective Vital Signs: Vital Signs Temperature 98.3 F 02/28/18 14:00 Pulse Rate 80 02/28/18 14:00 Respiratory Rate 20 02/28/18 14:00 Blood Pressure 145/68 02/28/18 14:00 O2 Sat by Pulse Oximetry (%) 96 02/28/18 09:00 Constitutional: Yes: No Distress, Calm Cardiovascular: Yes: Regular Rate and Rhythm Respiratory: Yes: Regular, CTA Bilaterally Gastrointestinal: Yes: Normal Bowel Sounds, Soft Genitourinary: Yes: WNL Musculoskeletal: Yes: WNL Extremities: Yes: Erythema Neurological: Yes: Alert, Oriented Psychiatric: Yes: Alert, Oriented Labs: CBC, BMP 02/28/18 05:30 02/28/18 05:30 INR, PTT INR 1.34 (0.83-1.09) H 02/26/18 16:45 Assessment/Plan cellulitis of left leg abd pain nausea leukocytosis plan will continue zosyn and vanco close monitoring of the leg rest as per the team
[2018-03-01] MEDS ORDERED: PIPERACILLIN/TAZOBACTAM 3.375 GM VIAL IVPB ONE ×4 (01:08→16:56)
[2018-03-01] MEDS ORDERED: DEXTROSE 5%-WATER - 50 ML IVPB ONE ×4 (01:08→16:57)
[2018-03-01] MEDS: PIPERACILLIN/TAZOB 3.375 GM 3.375 GM in DEXTROSE 5%-WATER - 50 ML IVPB SCH ×3 (02:11→17:09)
[2018-03-01] MEDS: SODIUM CHLORIDE 1,000 ML IV SCH ×3 (03:41→21:37)
[2018-03-01 06:49] LABS: BASO % 0.8 % (0-2.0); EOS % 3.7 % (0-4.5); HEMATOCRIT 46.3 % (35.4-49); LYMPH % 27.6 % (8-40); MCH 28.3 pg (25.7-33.7); MCHC 32.5 g/dl (32.0-35.9); MEAN CELL VOLUME 87.1 fl (80-96); MEAN PLT VOLUME 7.8 fl (7.5-11.1); MONO % 10.5 % (3.8-10.2); NEUT % 57.4 % (42.8-82.8); PLATELET COUNT 195 K/MM3 (134-434); RBC 5.31 M/mm3 (4.00-5.60); WHITE BLOOD COUNT 7.7 K/mm3 (4.0-10.0)
[2018-03-01] MEDS: ASPIRIN COATED 81 MG TABLET.EC PO SCH (09:26)
[2018-03-01] MEDS: LOSARTAN POTASSIUM 50 MG TABLET (FP) PO SCH (09:26)
[2018-03-01] MEDS: MUPIROCIN CA 2% TOPICAL CREAM 15 GM TUBE TP SCH ×2 (09:28→21:37)
[2018-03-01] MEDS: VANCOMYCIN 1,250 MG in DEXTROSE 5%-WATER - 250 ML IVPB SCH (11:40)
--- NOTE | 2018-03-01 14:21 | PN ---
Progress Note, Physician History of Present Illness: redness better swelling better patients states that itching - Current Medication List Current Medications: Active Medications Aspirin (Ecotrin -) 162 mg PO DAILY [facility] Last Admin: 03/01/18 09:26 Dose: 162 mg Sodium Chloride (Normal Saline -) 1,000 mls @ 75 mls/hr IV ASDIR [facility] Last Admin: 03/01/18 03:41 Dose: 75 mls/hr Vancomycin HCl 1,250 mg/ (Dextrose) 250 mls @ 250 mls/2 hr IVPB Q24H [facility]; Protocol Last Admin: 03/01/18 11:40 Dose: 250 mls/2 hr Piperacillin Sod/Tazobactam (Sod 3.375 gm/ Dextrose) 50 mls @ 100 mls/hr IVPB Q8H-IV [facility]; Protocol Last Admin: 03/01/18 09:27 Dose: 100 mls/hr Losartan Potassium (Cozaar -) 50 mg PO DAILY [facility] Last Admin: 03/01/18 09:26 Dose: 50 mg Mupirocin (Bactroban 2% Cream -) 1 applic TP BID [facility] Last Admin: 03/01/18 09:28 Dose: 1 applic Polyethylene Glycol (Miralax (For Daily Use) -) 17 gm PO DAILY [facility] - Objective Vital Signs: Vital Signs Temperature 97.6 F 03/01/18 10:00 Pulse Rate 71 03/01/18 10:00 Respiratory Rate 20 03/01/18 10:00 Blood Pressure 152/78 03/01/18 10:00 O2 Sat by Pulse Oximetry (%) 96 02/28/18 21:00 Constitutional: Yes: No Distress, Calm Cardiovascular: Yes: Regular Rate and Rhythm Respiratory: Yes: Regular, CTA Bilaterally Gastrointestinal: Yes: Normal Bowel Sounds, Soft Musculoskeletal: Yes: WNL Extremities: Yes: Erythema (improving) Integumentary: Yes: Erythema Neurological: Yes: Alert, Oriented Psychiatric: Yes: Alert, Oriented Labs: CBC, BMP 03/01/18 06:30 02/28/18 05:30 INR, PTT INR 1.34 (0.83-1.09) H 02/26/18 16:45 Assessment/Plan cellulitis of left leg abd pain nausea leukocytosis plan continue abx 'will check vanco trough tomorrow would suggest dermatology consult other pathology going on apart from cellulitis as far as i think rest as per the team
[2018-03-01] MEDS ORDERED: PT OWN MED DRAWER 7, Y5N ONE (16:56)
[2018-03-02] MEDS ORDERED: PIPERACILLIN/TAZOBACTAM 3.375 GM VIAL IVPB ONE ×2 (00:20→09:40)
[2018-03-02] MEDS: PIPERACILLIN/TAZOB 3.375 GM 3.375 GM in DEXTROSE 5%-WATER - 50 ML IVPB SCH ×2 (02:38→09:49)
[2018-03-02 08:03] LABS: BASO % 0.7 % (0-2.0); EOS % 3.8 % (0-4.5); HEMATOCRIT 40.9 % (35.4-49); HEMOGLOBIN 14.2 GM/dL (11.7-16.9); LYMPH % 21.4 % (8-40); MCH 29.7 pg (25.7-33.7); MCHC 34.7 g/dl (32.0-35.9); MEAN CELL VOLUME 85.8 fl (80-96); MEAN PLT VOLUME 8.3 fl (7.5-11.1); MONO % 11.2 % (3.8-10.2); NEUT % 62.9 % (42.8-82.8); PLATELET COUNT 205 K/MM3 (134-434); RBC 4.76 M/mm3 (4.00-5.60); WHITE BLOOD COUNT 8.7 K/mm3 (4.0-10.0)
[2018-03-02] MEDS: LOSARTAN POTASSIUM 50 MG TABLET (FP) PO SCH (09:48)
[2018-03-02] MEDS: ASPIRIN COATED 81 MG TABLET.EC PO SCH (09:48)
[2018-03-02] MEDS: MUPIROCIN CA 2% TOPICAL CREAM 15 GM TUBE TP SCH (09:53)
[2018-03-02] MEDS ORDERED: POLYETHYLENE GLYCOL 3350 119 GM BTL PO SCH (10:00)
[2018-03-02 11:07] VITALS: BP 163/84; PULSE 71; TEMP 98.5
--- NOTE | 2018-03-02 11:11 | DS ---
Physical Examination Vital Signs: Vital Signs Temperature 98.5 F 03/02/18 10:00 Pulse Rate 71 03/02/18 10:00 Respiratory Rate 20 03/02/18 10:00 Blood Pressure 163/84 03/02/18 10:00 O2 Sat by Pulse Oximetry (%) 96 02/28/18 21:00 Constitutional: Yes: Well Nourished Eyes: Yes: WNL, Occular Prosthesis Neck: Yes: WNL Cardiovascular: Yes: WNL Respiratory: Yes: WNL Gastrointestinal: Yes: WNL ...Rectal Exam: Yes: Deferred, Sphincter Tone Normal Breast(s): Yes: WNL Musculoskeletal: Yes: Other (lt leg better) Extremities: Yes: WNL, Other (lt leg better) Edema: No Peripheral Pulses WNL: Yes Wound/Incision: Yes: Clean/Dry Neurological: Yes: WNL ...Motor Strength: WNL Psychiatric: Yes: WNL Labs: CBC, BMP 03/02/18 06:40 02/28/18 05:30 Discharge Summary Reason For Visit: CELLULITIS Current Active Problems Cellulitis (Acute) Hypertension (Acute) - Instructions Diet, Activity, Other Instructions: silvadene oimtment daily asa /12,5 qday appt w mr tuesday 100 pm made meds called in [facility] already Referrals: Speedy Sandoval MD [Primary Care Provider] - Disposition: HOME - Home Medications Comprehensive Discharge Medication List: Ambulatory Orders Escitalopram Oxalate [Lexapro -] 10 mg PO DAILY 07/01/16 Losartan Potassium [Cozaar -] 50 mg PO DAILY 07/01/16
== END 2018-03-02 12:34 | disposition home or self-care (01) | DRG 603 ==
LOC: JER 16:16 → JERBED 18:50 → J6S 22:13
PROVIDERS: ADMIT Family Medicine; ATTEND Family Medicine
DX: L03.116 Cellulitis of left lower limb (principal); I10 Essential (primary) hypertension; G47.33 Obstructive sleep apnea (adult) (pediatric); D72.829 Elevated white blood cell count, unspecified; R11.0 Nausea; R10.9 Unspecified abdominal pain
CPT/HCPCS: 36415; 71045-TC-FY; 73700-TC-RT; 74177-TC; 80048; 80053; 81003; 81015; 82803; 83605; 84484; 85025; 85610; 85730; 87040; 87086; 93005; 93010; 93971-TC; 99283-25; J0131; J7030

== ENCOUNTER 2019-12-19 04:36 | Day surgery (SDC) | payer OTHER ==
[2019-12-17 19:29] VITALS: BMI 34.8
[~2019-12-19 04:36] MED LIST: BUPIVACAINE HCL/PF 0.5% (5MG/ML) 10 ML VIAL IJ ONE; LIDOCAINE 1%/EPI 1:100000 (50 ML MULTI DOSE VIAL) INF ONE
--- OUTSIDE RECORDS SUMMARY | 2019-12-19 04:38 | XMS ---
:1965 Author Organization [facility] Support Name Relationship Address Phone [facility] Unavailable [address] [phone] [place] [address] ADELAIDA JACOBSEN [address] [place] [address] Re-disclosure Warning The records that you are about to access may contain information from federally- assisted alcohol or drug abuse programs. If such information is present, then the following federally mandated warning applies: This information has been disclosed to you from records protected by federal confidentiality rules (42 CFR part 2). The federal rules prohibit you from making any further disclosure of this information unless further disclosure is expressly permitted by the written consent of the person to whom it pertains or as otherwise permitted by 42 CFR part 2. A general authorization for the release of medical or other information is NOT sufficient for this purpose. The Federal rules restrict any use of the information to criminally investigate or prosecute any alcohol or drug abuse patient.The records that you are about to access may contain highly sensitive health information, the redisclosure of which is protected by Article 27-F of the [facility] Public Health law. If you continue you may haveaccess to information: Regarding HIV / AIDS; Provided by facilities licensed or operated by the [facility] Office of Mental Health; or Provided by the [facility] Office for People With Developmental Disabilities. If such information is present, then the following [facility] mandated warning applies: This information has been disclosed to you from confidential records which are protected by state law. State law prohibits you from making any further disclosure of this information without the specific written consent of the person to whom it pertains, or as otherwise permitted by law. Any unauthorized further disclosure in violation of state law may result in a fine or intermediate sentence or both. A general authorization for the release of medical or other information is NOT sufficient authorization for further disclosure. Insurance Providers Payer name Policy type / Policy ID Covered Covered democrat's Policy Plan Coverage type democrat ID relationship to Ruiz Information ruiz [employer] HMO [id number] SP [id number] 1 Results ID Date Data Source [id number] 12/15/2019 08:50:00 AM EDT [facility] Name Value Range Interpretation Description Data Sup porting Code Source(s) Document(s ) SARS [facility] coronavirus 2 RNA This lab was ordered by [facility] and reported by [facility]. ID Date Data Source [id number] 06/27/2019 12:00:00 AM EDT [facility] Name Value Range Interpretation Code Description Data Becky rce(s) Supporting Document(s ) 2019-nCoV [facility] RNA XXX ASHWINI+probe- Imp [facility] reported by [facility] Procedure
[2019-12-19] MEDS ORDERED: LIDOCAINE 1%/EPI 1:100000 (50 ML MULTI DOSE VIAL) ONE (08:56)
--- NOTE | 2019-12-19 09:08 | HP ---
Satellite [facility] - Chief Complaint Chief Complaint: right knee pain - Past Medical History Allergies/Adverse Reactions: Allergies Allergy/AdvReac Type Severity Reaction Status Date / Time No Known Allergies Allergy Verified 12/19/19 07:46 - Current Medications Current Medications: Home Medications Medication Instructions Recorded Losartan Potassium [Cozaar -] 100 mg PO DAILY 07/01/16 Amlodipine Besylate [Norvasc -] 10 mg PO DAILY 12/17/19 Hydrochlorothiazide [Hctz -] 25 mg PO DAILY 12/17/19 Indomethacin [Indocin -] 50 mg PO Q8H 12/17/19 Rosuvastatin [Crestor -] 20 mg PO DAILY 12/17/19 Oxycodone HCl/Acetaminophen 1 tab PO Q6H #12 tablet MDD 4 12/19/19 [Percocet 5-325 mg Tablet] Satellite Physical Exam - Physical Examination Vital Signs: Vital Signs Period Temp Pulse Resp BP Sys/Johnson Pulse Ox Last 24 Hr 97.3 F 75 16 141/70 96 General Appearance: Well Nourished, Well Developed, Alert & Oriented x3 ENT: Clear Lung: Normal air movement Extremities: Other (right knee- + swelling, + ttp, decr rom, + mcmurrays, nvi) Neurological: Intact, Alert, Oriented Satellite Impression/Plan - Impression/Plan Impression: right knee internal derangement Operative Procedure: right knee arthroscopy Date to be Performed: 12/19/19
[2019-12-19] MEDS ORDERED: PROPOFOL 20 ML ONE (09:39)
[2019-12-19] MEDS ORDERED: MIDAZOLAM HCL 2 MG/2 ML SINGLE DOSE VIAL ONE ×2 (09:39→10:13)
[2019-12-19] MEDS ORDERED: DEXAMETHASONE SOD PHOSPHATE 4 MG/1 ML VIAL ONE (10:13)
[2019-12-19] MEDS ORDERED: BUPIVACAINE HCL/PF 0.5% (5MG/ML) 10 ML VIAL IJ ONE (10:45)
[2019-12-19] MEDS ORDERED: LIDOCAINE 1%/EPI 1:100000 (50 ML MULTI DOSE VIAL) INF ONE (10:45)
--- NOTE | 2019-12-19 10:59 | OP ---
Operative Note - Note: Operative Date: 12/19/19 ([facility]) Pre-Operative Diagnosis: left knee internal derangement Operation: left knee arthroscopy with PMM Post-Operative Diagnosis: Same as Pre-op Surgeon: Buddy Cordon Anesthesia: General, Local Specimens Removed: shavings Estimated Blood Loss (mls): 5
[2019-12-19] MEDS ORDERED: ONDANSETRON 4 MG/2 ML VIAL IVPUSH PRN (11:25)
[2019-12-19] MEDS ORDERED: oxyCODONE HCL 5 MG TABLET PO PRN ×2 (11:25)
[2019-12-19] MEDS ORDERED: LACTATED RINGERS SOLUTION 1,000 ML IV SCH (11:30)
[2019-12-19 13:03] VITALS: BP 164/84; PULSE 72; TEMP 97
--- NOTE | 2019-12-19 18:28 | OP ---
DATE OF OPERATION: 12/19/2019 PREOPERATIVE DIAGNOSIS: Internal derangement of the knee. POSTOPERATIVE DIAGNOSIS: Internal derangement of the knee. PROCEDURE: Arthroscopy left knee, partial medial meniscectomy. SURGICAL ATTENDING: Buddy Cordon MD. ANESTHESIA: General with LMA. CLOSURE: 4-0 nylon. COMPLICATIONS: None. CONDITION: To recovery in stable condition. DESCRIPTION OF OPERATIVE PROCEDURE: Patient was taken to the operating room on December 19, 2019. General anesthesia with LMA was administered by the anesthesiologist. Right lower extremity was prepped and draped in the usual sterile fashion. The medial and lateral infrapatellar portal sites were infiltrated with 1% Xylocaine with epinephrine. Both portals were then made with 15-blade followed by blunt trocar. The scope was placed in the lateral infrapatellar portal and up into the suprapatellar pouch. The knee inflated with a cocktail of 10 mL of 1% Xylocaine, 10 mL 0.5% Marcaine and 20 mL of arthroscopic saline. After allowing the anesthetic to work, the procedure was performed. The suprapatellar pouch was visualized to be clean, the medial and lateral gutters were visualized to be clean, and the undersurface of the patella and trochlea visualized to be intact. With valgus stress on the knee, the medial compartment was entered and the medial meniscus was visualized and found to have a complex tear . The medial femoral condyle was run and was found to be intact as was the medial tibial plateau. At 90 degrees, the ACL was visualized and probed and found to be intact. In the figure of 4 position, the lateral compartment was entered. The lateral meniscus was visualized and probed and found to be intact. The lateral femoral condyle was run and was found to be intact as was the lateral tibial plateau. The knee was irrigated with copious amounts of irrigation. Port was closed with 4-0 nylon. Prior to closure, 20 mL of 0.5% Marcaine was infused through the outflow portal. Sterile pressure dressing was placed over the knee. Patient awakened from anesthesia and transferred to recovery in stable condition. No complications. Estimated blood loss negligible. Yon [id number]
--- NOTE | 2019-12-21 13:07 | PATH ---
Surgical Pathology Report Patient Name: MADELYN JOY Med. Rec. #: [id number] /Age/Gender: 1965 (Age: 54) / M Account: [id number] Location: [facility] Taken: 12/19/2019 Received: 12/19/2019 Reported: 12/21/2019 Physicians: Buddy Cordon M.D. Specimen(s) Received LEFT KNEE SHAVINGS Clinical History Internal derangement left knee Final Diagnosis KNEE, LEFT, ARTHROSCOPIC SHAVINGS: FIBROSYNOVIAL TISSUE AND CARTILAGE. Electronically Signed Sarah Ponce M.D. Gross Description Received in formalin, labeled "left knee shavings," is a 5.5 x 4.5 x 0.7 cm. aggregate of ibarra-yellow soft tissue fragments. A credit representative portion is submitted in one cassette. DL/12/19/2019 saudi/12/19/2019
== END 2019-12-19 13:10 | disposition home or self-care (01) ==
LOC: JASU-SURG 04:36
PROVIDERS: ATTEND Orthopaedic Surgery
PROC: 0SBD4ZZ Excision of Left Knee Joint, Percutaneous Endoscopic Approach (ICD-10-PCS; principal; 2019-12-19 09:30)
DX: S83.232A Complex tear of medial meniscus, current injury, left knee, initial encounter (principal); X58.XXXA Exposure to other specified factors, initial encounter; Y93.9 Activity, unspecified; Y92.9 Unspecified place or not applicable; Y99.9 Unspecified external cause status
CPT/HCPCS: 88304-TC; 94760